=== PATIENT | male | born 1960 | race African-American/Black ===

== ENCOUNTER 2020-03-01 19:17 | Emergency (ER) | payer MEDICAID ==
[~2020-03-01] VITALS: Ht 175.3 cm; Wt 76.8 kg
[2020-03-01] MEDS ORDERED: FLUT1DIS3 IH (19:35)
[2020-03-01] MEDS ORDERED: LIDOCAINE HCL 1% 20ML VIAL (Pyxis) INJ INFIL ONE (20:00)
[2020-03-01] MEDS ORDERED: GENTAMICIN 100MG PREMIX 100 ML IV ONE (20:00)
[2020-03-01] MEDS ORDERED: CEFAZOLIN 1000MG PREMIX 50 ML IV ONE (20:00)
[2020-03-01] MEDS ORDERED: MORPHINE SULFATE 4 MG/ML CPJ (NOT FOR IM USE) IV ONE (21:30)
[2020-03-02] MEDS ORDERED: ONDANSETRON HCL 4MG/2ML INJ IV NR (01:00)
[2020-03-02] MEDS ORDERED: MORPHINE SULFATE 4 MG/ML CPJ (NOT FOR IM USE) IV NR (01:00)
[2020-03-02] MEDS ORDERED: TETANUS, DIPHTHERIA, PERTUSSIS VAC/PF 0.5ML (>7YR OLD) IM ONE (01:00)
[2020-03-02 03:43] VITALS: BP 113/82
[2020-03-02] MEDS ORDERED: CEFAZOLIN 1000MG PREMIX 50 ML IV ONE (04:00)
== END 2020-03-02 04:03 | disposition short-term general hospital (02) ==
LOC: ER 19:17
DX: S69.81XA Other specified injuries of right wrist, hand and finger(s), initial encounter (principal); W22.8XXA Striking against or struck by other objects, initial encounter; Y93.89 Activity, other specified; Y92.89 Other specified places as the place of occurrence of the external cause; Y99.8 Other external cause status; J45.909 Unspecified asthma, uncomplicated
CPT/HCPCS: 29130; 73130; 90471; 90715; 96365; 96375; 96376; 99285; J0690; J2270; J2405; J3490; J1580